=== PATIENT | male | born 1965 | race Caucasian/White ===

== ENCOUNTER 2019-02-28 09:47 | Outpatient (CLI) | payer BC, OTHER ==
[2013-01-05 10:36] VITALS: BP 120/88
--- NOTE | 2019-03-12 10:46 | CONSULTATION REPORT ---
DATE OF VISIT: 02/28/2019 CHIEF COMPLAINT: Low back pain to the right lower extremity. HISTORY OF PRESENT ILLNESS: Mr. Ochoa returns after being seen last approximately 1 month ago, on 01/31/2019, with right lower extremity pain and lumbar radicular symptoms. The patient did, in fact, have an MRI recently which revealed an L5-S1 right sided herniated nucleus pulposus as well as L5-S1 facet arthropathy. The patient has seen some improvement over the last few weeks with medication management and changes. The patient is now having some upper lumbar complaints of tenderness at or around the L1 through L3 levels. This is most likely myofascial in nature. The patient has discontinued meloxicam since it made him feel funny. We will plan on changing this over to Naprosyn. PHYSICAL EXAMINATION: The patient is awake and alert. Vital signs are stable. Heart is regular in rate and rhythm. Eyes PERRLA. Throat clear. Trachea midline. Lungs have good excursion. No acute respiratory distress. Abdomen is soft and nontender. The patient has decreased lumbosacral tenderness on examination. The patient has minimal complaints of tenderness in the L1 through L3 levels in the paraspinous musculature and out into the flanks. No masses are noted. There is no significant myofascial spasm noted at this time. IMAGING: As mentioned above. DIAGNOSES: 1. Lumbar radiculopathy. 2. L5-S1 HNP, right side. 3. Lumbar disc displacement. PLAN AT THIS TIME: I will get this patient set up with a referral for physical therapy regarding the myofascial component, as described above. We will get the patient set up for a lumbar epidural steroid injection, right L5-S1 level, in about 2 weeks. The procedure will require fluoroscopic guidance but the patient will not require any sedation. We will go ahead and refill his medications as needed. A prescription was given for Naprosyn 375 mg 1 tablet p.o. q.12h. Again, I would like to thank Dr. Jose for referral of this patient to us at this time. Sincerely, Stephen Warren M.D. (dictated but not read) computer generated signature MN/pre cc: Deepak Jose M.D. NOTE: Time spent with this patient was in excess of 25 minutes today. MTDD
== END 2019-02-28 10:30 ==
LOC: OUT 09:47
PROVIDERS: ATTEND Pain Medicine Interventional Pain Medicine
DX: S30.0XXA Contusion of lower back and pelvis, initial encounter (principal); M50.20 Other cervical disc displacement, unspecified cervical region; X50.9XXA Other and unspecified overexertion or strenuous movements or postures, initial encounter
CPT/HCPCS: 99204